=== PATIENT | male | born 1960 | race Caucasian/White ===

== ENCOUNTER 2020-06-08 08:56 | Observation (INO) ==
[2020-06-08 09:30] LABS: Basophils # 0.1 10*3/uL (0.0-0.2); Basophils % 0.7 % (0.0-0.8); Eosinophils # 0.4 10*3/uL (0.0-0.87); Eosinophils % 3.9 % (0.00-10.9); Hematocrit 43.4 VOL% (42.0-52.0); Hemoglobin 14.8 GM/DL (14.0-18.0); Immature Granulocytes % 0.3 %; Immature Granulocytes Absolute 0.03 #; Lymphocytes % 20.2 % (21.2-54.2); Mean Corpuscular HGB Conc 34.1 GM/DL (32-36); Mean Corpuscular Volume 91.8 FL (87-102); Mean Platelet Volume 8.7 FL (9.6-12.0); Monocytes % 5.9 % (1.7-12.7); Platelet Count 248 T/CUMM (130-400); Red Blood Count 4.73 MC/CUMM (3.8-5.5); Red Cell Distribution Width 13.1 % (9.3-17.3); White Blood Count 9.7 T/CUMM (4-12)
[2020-06-08 09:38] LABS: PT Patient Result 10.3 SECS (9.8-11.9)
[2020-06-08 09:58] LABS: Albumin 4.2 G/DL (3.4-5.0); Bilirubin,Total 0.4 MG/DL (0.2-1.0); Calcium 8.9 MG/DL (8.5-10.1); Osmolality,Calculated 273.8 MOS/KG (273-304); Total Protein 7.5 G/DL (6.4-8.3)
[2020-06-08] MEDS ORDERED: SODIUM CHLORIDE 0.9% 1,000 ML IV STA (10:17)
[2020-06-08 10:43] LABS: Thyroid Stimulating Hormone 1.43 uIU/ml (0.358-3.74)
[2020-06-08 11:12] LABS: Barbiturates Screen,Urine Negative (Negative); Benzodiazepines Screen,Urine Negative (Negative); Cannabinoid Screen,Urine Negative (Negative); Opiate Screen,Urine Negative (Negative); Phencyclidine Screen,Urine Negative (Negative)
[2020-06-08 11:15] LABS: Bilirubin,Urine Negative (Negative); Blood, Urine Negative (Negative); Glucose,Urine (UA) Negative (Negative); Ketones,Urine Negative (Negative); Nitrite,Urine Negative (Negative); Protein,Urine Negative; RBC,Urine 1 /HPF (0-4); Urine Appearance CLEAR (Clear); Urine Color Straw (Yellow); Urine Specific Gravity 1.006 (1.001-1.035); Urine Urobilinogen < 2.0 EU/DL (0.2-1.0); WBC,Urine <1 /HPF (0-6)
[2020-06-08] MEDS ORDERED: ASPIRIN 325 MG TABLET PO STA (14:13)
[2020-06-08] MEDS ORDERED: ATORVASTATIN 40 MG TABLET PO STA (14:13)
[2020-06-08] MEDS ORDERED: CETIRIZINE 10 MG TABLET PO STA (14:19)
[2020-06-08 14:45] LABS: Risk Ratio 5.69; VLDL CHOLESTEROL 65.8 MG/DL
[2020-06-08] MEDS ORDERED: INFLUENZA VIRUS VACCINE 0.5 ML SYRINGE IM ONE (16:05)
[2020-06-08] MEDS: INDOMETHACIN 25 MG CAPSULE PO SCH ×2 (16:53→21:14)
[2020-06-08] MEDS: MORPHINE 4 MG/1 ML VIAL IV PRN ×2 (21:14→23:21)
[2020-06-08] MEDS: allopurinoL 300 MG TABLET PO SCH (21:14)
[2020-06-09] MEDS: MORPHINE 4 MG/1 ML VIAL IV PRN (03:18)
[2020-06-09] MEDS: allopurinoL 300 MG TABLET PO SCH (09:36)
[2020-06-09] MEDS: INDOMETHACIN 25 MG CAPSULE PO SCH (09:36)
[2020-06-09] MEDS ORDERED: ASPIRIN EC 81 MG TABLET PO SCH (10:30)
[2020-06-09 12:44] VITALS: BP 139/86
[2020-06-09] MEDS ORDERED: ROSUVASTATIN 20 MG TABLET PO SCH (21:00)
== END 2020-06-09 14:35 | disposition home or self-care (01) ==
LOC: N.EDINP 08:56 → N.ED 08:56 → N.TELEN 14:40
PROVIDERS: ADMIT Internal Medicine; ATTEND Internal Medicine